=== PATIENT | female | born 1950 | race Caucasian/White ===

== ENCOUNTER 2016-03-14 17:15 | Emergency (ER) | payer BC, OTHER ==
[~2016-03-14] VITALS: Ht 162.6 cm; Wt 54.4 kg
[2016-03-14] MEDS ORDERED: AMBIEN 5 MG TABL5 M1 PO (17:26)
[2016-03-14] MEDS ORDERED: LISINOPRIL10 MG PO (17:26)
[2016-03-14] MEDS ORDERED: PROTONIX40 M1 PO (17:26)
[2016-03-14] MEDS ORDERED: LEVOTHYROXIN0.025 MG PO (17:27)
[2016-03-14] MEDS ORDERED: NORCO 5-325 TA1 EACH PO (18:23)
[2016-03-14 18:40] VITALS: BP 131/93
== END 2016-03-14 18:41 | disposition home or self-care (01) ==
LOC: ER 17:15
DX: S42.202A Unspecified fracture of upper end of left humerus, initial encounter for closed fracture (principal); I10 Essential (primary) hypertension; K21.9 Gastro-esophageal reflux disease without esophagitis; W10.9XXA Fall (on) (from) unspecified stairs and steps, initial encounter; Y93.9 Activity, unspecified; Y92.9 Unspecified place or not applicable; Y99.9 Unspecified external cause status

== ENCOUNTER 2018-11-13 15:01 | Emergency (ER) | payer BC, OTHER ==
[~2018-11-13] VITALS: Ht 162.6 cm; Wt 52.2 kg
[~2018-11-13 15:01] MED LIST: AMBIEN 5 MG TABL5 M1 PO; LEVOTHYROXIN0.025 MG PO; LISINOPRIL10 MG PO; NORCO 5-325 TA1 EACH PO; PROTONIX40 M1 PO
[2018-11-13] MEDS ORDERED: NORCO 5-325 TA1 EAC1 PO (16:17)
[2018-11-13 16:58] VITALS: BP 142/84
== END 2018-11-13 16:58 | disposition home or self-care (01) ==
LOC: ER 15:01
DX: S60.211A Contusion of right wrist, initial encounter (principal); I10 Essential (primary) hypertension; K21.9 Gastro-esophageal reflux disease without esophagitis; Z91.040 Latex allergy status; Z88.2 Allergy status to sulfonamides; Z88.8 Allergy status to other drugs, medicaments and biological substances; Z88.6 Allergy status to analgesic agent; W18.39XA Other fall on same level, initial encounter; Y93.89 Activity, other specified; Y92.89 Other specified places as the place of occurrence of the external cause; Y99.8 Other external cause status